=== PATIENT | male | born 1985 | race Caucasian/White ===

== ENCOUNTER → 2022-08-21 12:20 | Outpatient (BNVA) | payer MEDICAID, SELFPAY | PROVIDERS: Family Provider Pediatrics Adolescent Medicine; Visit Provider Nurse Practitioner Family | DX: E78.5 Hyperlipidemia, unspecified (principal) | CPT/HCPCS: 80053; 80061; 84443; 85025 ==

== ENCOUNTER → 2022-09-27 08:27 | Outpatient (BNVA) | payer MEDICAID, SELFPAY | PROVIDERS: Family Provider Pediatrics Adolescent Medicine; PCP Nurse Practitioner Family; Visit Provider Nurse Practitioner Family | DX: E87.1 Hypo-osmolality and hyponatremia (principal) | CPT/HCPCS: 80048 ==

== ENCOUNTER → 2022-12-27 14:34 | Outpatient (BNVA) | payer MEDICAID, SELFPAY | PROVIDERS: Family Provider Pediatrics Adolescent Medicine; PCP Nurse Practitioner Family; Visit Provider Nurse Practitioner Family | DX: B35.1 Tinea unguium (principal) | CPT/HCPCS: 80053 ==

== ENCOUNTER → 2023-04-25 17:21 | Outpatient (BNVA) | payer MEDICAID, SELFPAY | PROVIDERS: Family Provider Pediatrics Adolescent Medicine; PCP Nurse Practitioner Family; Visit Provider Nurse Practitioner Family | DX: E78.5 Hyperlipidemia, unspecified (principal) | CPT/HCPCS: 80053; 80061; 84443; 85025 ==

== ENCOUNTER 2023-08-06 08:41 | Emergency (ER) | payer MEDICAID, SELFPAY ==
[2023-08-06 08:51] VITALS: BP 151/97; PULSE 105; RESP 20; TEMP 36.7; O2SAT 96
--- NOTE | 2023-08-06 08:56 | CT_ITS ---
WS: [id number] CT HEAD TECHNIQUE: Noncontrast CT of the head obtained from the skullbase to the vertex. CLINICAL INFORMATION: hitting head COMPARISON: None. DLP: 1103.[address] scans at [facility] use at least one of these dose optimization techniques: automated e xposure control; mA and/or kV adjustment per patient size (includes targeted exams where dose is matc hed to clinical indication); or iterative reconstruction. FINDINGS: No evidence of intracranial hemorrhage or mass effect. Ventricular system and basal cisterns are shi nt. No extra-axial fluid collections. No evidence of mass or mass effect. Normal rogers-white different iation. Paranasal sinuses and mastoid air cells are well aerated. .Normal visualized soft tissues. IMPRESSION: 1. No evidence of intracranial hemorrhage or mass effect. 2. No acute intracranial findings.
--- NOTE | 2023-08-06 08:56 | W.ED.GENADLT ---
HPI - General Adult General: Chief complaint: General Medical Stated complaint: hitting head Time Seen by Provider: 08/06/23 08:52 History of Present Illness: 37-year-old man with a history of severe developmental delay who presents to the emergency room with concern for head injury. Apparently he has been hitting his head on things. This is part of his developmental delay. He had been wearing a helmet but this had been discontinued for some reason. Mom to take him to the PCP to try to get a head CT but they could not be done there so she is come to the emergency room. They say he has to be sedated for procedures. He does not have any new focal motor deficits and his behavior is not much different than his baseline. No vomiting. No known fevers or chills. No cough. No abdominal pain. Review of Systems Narrative: Unable to obtain secondary to developmental delay. [facility] ED PFSH: Medical History Constipation Mood disorder Autism Hyperlipidemia Social History Smoking and tobacco/nicotine status: never used tobacco/nicotine Second hand smoke exposure: No Alcohol intake: never Substance/Drug Use: never Caregiver/support person: Yes Household members: caregiver Housing: Assisted Living Facility Marital status: Single Current occupational status: disabled Current gender identity: Male Physical Exam Narrative: EXAM NARRATIVE: General: Alert, no acute distress. Skin: Warm, dry. Head: Normocephalic, atraumatic. Neck: Supple, trachea midline. Eye: Extraocular movements are intact. Ears, nose, mouth and throat: mucosa moist. Cardiovascular: Regular, Normal peripheral perfusion. Respiratory: Lungs are clear to auscultation, respirations are non-labored, breath sounds are equal, Symmetrical chest wall expansion. Gastrointestinal: Soft, Nontender, Non distended, Normal bowel sounds. Musculoskeletal: Normal ROM, no deformity. Neurological: Alert and oriented to his family, No focal neurological deficit observed. Psychiatric: Patient has severe developmental delay. Apparently his behavior is at or near his baseline according to family. Course Vital Signs: Vital signs: Vital Signs Temperature 98.1 F 08/06/23 08:51 Pulse Rate 105 H 08/06/23 08:51 Respiratory Rate 20 H 08/06/23 08:51 Blood Pressure 151/97 08/06/23 08:51 Pulse Oximetry 96 08/06/23 08:51 MDM - General Adult Medical Decision Making Medical decision making: Differential diagnosis including but not limited to and based on the above HPI, review of systems and physical exam: Head injury. Concern for hemorrhage or skull fracture. Orders placed to evaluate differential diagnosis based on the above differential, HPI and physical exam CT head: No acute intracranial process. no intracranial hemorrhage, no evidence of infarct. no evidence of acute fracture.This was reviewed and interpreted by myself the ER physician. Reexamination: Patient remains at his baseline. Frequent outbursts of language. No focal motor deficits. No increased work of breathing. XR interpretation done by ED provider, pending radiology final review Other Data Assessment and plan: - Discharged home - Discussed plan with family. Answered any questions. - Evaluation and treatment of this problem were appropriate in the emergency setting. Discharge Plan Discharge Patient Disposition: Home Clinical Impression: Head injury, Autism Condition: Stable Prescriptions: No Action (DME) helmet See Rx Instructions .Route .MEDSUPPLY Qty: 1 0RF Rx Instructions: As directed lamotrigine 100 mg tablet 100 mg PO TID topiramate 100 mg tablet 100 mg PO TID magnesium hydroxide [Milk of Magnesia] 400 mg/5 mL suspension 60 ml PO DAILY PRN (Reason: constipation) Qty: 355 4RF acetaminophen [Tylenol] 325 mg capsule 650 mg PO QID PRN (Reason: pain or fever) Qty: 100 5RF ibuprofen 200 mg tablet 400 mg PO Q4H PRN (Reason: pain or fever) Qty: 100 5RF ondansetron HCl 4 mg tablet 4 mg PO QID PRN (Reason: nausea and vomiting) Qty: 30 2RF loperamide [Imodium A-D] 2 mg capsule 2 mg PO QID PRN (Reason: loose stool) Qty: 30 1RF clonidine HCl 0.1 mg tablet 0.1 mg PO QID risperidone 2 mg Tablet 2 mg PO QID carbamazepine 100 mg Tablet,Chewable 100 mg PO TID benztropine 1 mg tablet 1 mg PO BID vitamin E 268 mg (400 unit) Capsule 268 mg PO DAILY Miralax 17 gram/dose powder 17 g PO BID PRN (Reason: Constipation) Discharge Orders: Discharge ED (Routine); Ordered 08/06/23 Ordered By: Patsy Culp Referrals: Colleen Correa FNP [Primary Care Provider] - (I would recommend resuming the use of protective headgear. Your family member has been screened and evaluated and felt safe for discharge. Health conditions do change or evolve sometimes and as such it is important that you follow up with your Primary Doctor to be re checked, 3-5 days is a general good time frame for follow up. You are always welcome to return to the ED for re assessment if your symptoms are worsening or you have new concerns) Discharge Diet: Usual diet Discharge Activity: Resume usual activity Patient Instructions: Autism Spectrum Disorder (DC), Head Injury (ED), Opioid Safety, Pain Management Coding Level of Care Code ED Winter Intern for Clarice Savage
[2023-08-06] MEDS: LORazepam 2 mg/mL INJ 10 mL MDV IM (09:20)
[2023-08-06] MEDS: water for injection-sterile 10 ML (09:20)
[2023-08-06] MEDS: ziprasidone 20 mg/mL SDV IM (09:20)
== END 2023-08-06 10:49 | disposition home or self-care (01) ==
PROVIDERS: Emergency Provider Emergency Medicine; PCP Nurse Practitioner Family
DX: S09.90XA Unspecified injury of head, initial encounter (principal); F84.0 Autistic disorder; E78.5 Hyperlipidemia, unspecified; W22.8XXA Striking against or struck by other objects, initial encounter
CPT/HCPCS: 70450; 96372; 99284; J2060; J3486

== ENCOUNTER → 2023-10-16 11:54 | Outpatient (BNVA) | payer MEDICAID, SELFPAY | PROVIDERS: PCP Nurse Practitioner Family; Visit Provider Nurse Practitioner Family | DX: E78.5 Hyperlipidemia, unspecified (principal); Z12.5 Encounter for screening for malignant neoplasm of prostate; Z00.00 Encounter for general adult medical examination without abnormal findings; K59.00 Constipation, unspecified | CPT/HCPCS: 80053; 80061; 85025; G0103 ==

== ENCOUNTER 2023-12-20 11:35 | Emergency (ER) | payer MEDICAID, SELFPAY ==
[2023-12-20 12:04] VITALS: BP 148/94; PULSE 85; TEMP 36.6; O2SAT 99; BMI 23.9
--- NOTE | 2023-12-20 12:58 | W.ED.FALL ---
HPI - Fall General: Chief Complaint: Fall Stated Complaint: fall--head injury Time Seen by Provider: 12/20/23 12:01 Source: patient Mode of arrival: ambulatory Limitations: no limitations History of Present Illness: 37-year-old male who is here from a retirement he got up at 2 AM and ran and fell and hit his head he had no loss of consciousness he had no headache patient is at his baseline walk around the room talking with no complaints to me. He has no bleeding does have a small left frontal hematoma Associated symptoms-after fall: Denies abdominal pain, chest pain, headache(s) or neck pain Review of Systems Const: Denies: fever(s), chills, body aches or change in appetite Eyes: Denies: eye discomfort Card: Denies: chest pain Resp: Denies: dyspnea GI: Denies: abdominal pain, nausea, vomiting or diarrhea Musc: Denies: neck pain or back pain Skin/Breast: Denies: rash Neuro: Denies: headache(s) PFS ED PFSH: Medical History Constipation Mood disorder Autism Hyperlipidemia Social History Smoking and tobacco/nicotine status: never used tobacco/nicotine Second hand smoke exposure: No Alcohol intake: never Substance/Drug Use: never Caregiver/support person: Yes Household members: caregiver Housing: Assisted Living Facility Marital status: Single Current occupational status: disabled Current gender identity: Male Physical Exam Const: COMMON NORMALS: no acute distress and healthy appearing HENMT: COMMON NORMALS: normocephalic HEAD & SCALP: normocephalic OTHER: Small left frontal hematoma no laceration Eye: COMMON NORMALS: Equal, round and reactive pupils present and EOMs intact bilaterally PUPIL: Yes Equal, round and reactive pupils present Neck/C-Spine: COMMON NORMALS: full ROM and supple CERVICAL SPINE: Yes cervical ROM normal and No Cervical spine tenderness Chest: COMMONS NORMALS: normal inspection of the chest Resp: COMMON NORMALS: normal respiratory effort, No retractions, No use of accessory muscles and clear to auscultation bilaterally AUSCULTATION: clear to auscultation bilaterally Cardio: COMMON NORMALS: regular rate, regular rhythm and No murmurs present (Cardio) RATE: regular rate RHYTHM: regular rhythm GI: COMMON NORMALS: Normal to inspection, nondistended, normoactive bowel sounds present, Soft to palpation, non-tender and no masses PALPATION: Yes Soft to palpation Extremity: COMMON NORMALS: normal to inspection and full ROM Neuro: COMMON NORMALS: moves all extremities and no focal motor deficits Psych: COMMON NORMALS: cooperative Skin: COMMON NORMALS: no rashes or lesions noted and no wounds GENERAL SKIN EXAM: no rashes or lesions noted Course Vital Signs: Vital signs: Vital Signs Temperature 97.9 F 12/20/23 12:04 Pulse Rate 85 12/20/23 12:04 Blood Pressure 148/94 12/20/23 12:04 Pulse Oximetry 99 12/20/23 12:04 MDM - Fall Medical Decision Making Patient presents here with a closed head injury he has no signs of any major injuries did not require head CT did inform caregiver if he has vomiting or loss conscious to return he stable for discharge no signs of any cervical injury Medical Records I reviewed the patient's medical records. No radiology studies performed this visit Discharge Plan Discharge Patient Disposition: Home Clinical Impression: Closed head injury Condition: Stable Prescriptions: No Action (DME) helmet See Rx Instructions .Route .MEDSUPPLY Qty: 1 0RF Rx Instructions: As directed lamotrigine 100 mg tablet 100 mg PO TID topiramate 100 mg tablet 100 mg PO TID acetaminophen [Tylenol] 325 mg capsule 650 mg PO QID PRN (Reason: pain or fever) Qty: 100 5RF ibuprofen 200 mg tablet 400 mg PO Q4H PRN (Reason: pain or fever) Qty: 100 5RF ondansetron HCl 4 mg tablet 4 mg PO QID PRN (Reason: nausea and vomiting) Qty: 30 2RF loperamide 2 mg capsule See Rx Instructions .ROUTE .COMPLEX Qty: 30 1RF Dose Instruction: TAKE ONE CAPSULE BY MOUTH FOUR TIMES DAILY NEEDED FOR loose stool Rx Instructions: TAKE ONE CAPSULE BY MOUTH FOUR TIMES DAILY NEEDED FOR loose stool magnesium hydroxide [Milk of Magnesia] 400 mg/5 mL suspension See Rx Instructions .ROUTE .COMPLEX Qty: 355 4RF Dose Instruction: give 60 ML BY MOUTH DAILY NEEDED FOR constipation Rx Instructions: give 60 ML BY MOUTH DAILY NEEDED FOR constipation clonidine HCl 0.1 mg tablet 0.1 mg PO QID risperidone 2 mg Tablet 2 mg PO QID carbamazepine 100 mg Tablet,Chewable 100 mg PO TID benztropine 1 mg tablet 1 mg PO BID vitamin E 268 mg (400 unit) Capsule 268 mg PO DAILY Miralax 17 gram/dose powder 17 g PO BID PRN (Reason: Constipation) Discharge Orders: Discharge ED (Routine); Ordered 12/20/23 Ordered By: Jose Lowery Referrals: Colleen Correa FNP [Primary Care Provider] - 4-7 days Discharge Diet: Advance as tolerated Discharge Activity: Resume usual activity Patient Instructions: Head Injury (ED) Coding Level of Care Code ED Lead Data Entry Operator for Clarice Savage
[2023-12-20 13:06] VITALS: BP 141/91; PULSE 81; RESP 16; TEMP 36.6; O2SAT 100
== END 2023-12-20 13:07 | disposition home or self-care (01) ==
PROVIDERS: Emergency Provider Emergency Medicine; PCP Nurse Practitioner Family
DX: S09.90XA Unspecified injury of head, initial encounter (principal); W19.XXXA Unspecified fall, initial encounter
CPT/HCPCS: 99281

== ENCOUNTER → 2024-09-10 10:37 | Outpatient (BNVA) | payer MEDICAID, SELFPAY | PROVIDERS: PCP Nurse Practitioner Family; Visit Provider Podiatrist Foot & Ankle Surgery | DX: M79.671 Pain in right foot (principal); M79.672 Pain in left foot; M21.6X1 Other acquired deformities of right foot; M21.6X2 Other acquired deformities of left foot; R26.89 Other abnormalities of gait and mobility; R26.81 Unsteadiness on feet | CPT/HCPCS: 73630; 99203 ==

== ENCOUNTER → 2024-10-21 10:57 | Outpatient (BNVA) | payer MEDICAID, SELFPAY | PROVIDERS: PCP Nurse Practitioner Family; Visit Provider Nurse Practitioner Family | DX: E78.5 Hyperlipidemia, unspecified (principal); Z12.5 Encounter for screening for malignant neoplasm of prostate; F84.0 Autistic disorder | CPT/HCPCS: 80053; 80061; 83036; 84443; 85025; G0103 ==

== ENCOUNTER → 2024-12-05 10:15 | Outpatient (BNVA) | payer MEDICAID, SELFPAY | PROVIDERS: PCP Nurse Practitioner Family; Visit Provider Nurse Practitioner Family | DX: Z79.899 Other long term (current) drug therapy (principal) | CPT/HCPCS: 80053; 80061; 84443; 85025 ==